=== PATIENT | female | born 1950 | race Caucasian/White ===

== ENCOUNTER 2018-09-30 14:30 | Emergency (ER) | payer OTHER ==
--- NOTE | 2018-09-30 15:37 | RAD REPORT ---
EXAM DESCRIPTION: RAD - Forearm Right - 09/30/2018 3:31 pm CLINICAL HISTORY: PAIN Fall, pain COMPARISON: <Comparisons> FINDINGS: Right forearm and right wrist- multiple projections are submitted Mildly impacted distal radius fracture is seen with intra-articular extension. Ulnar styloid avulsion fracture is present. No dislocation evident. Mild soft tissue swelling is seen.
[2018-09-30] MEDS ORDERED: FENTANYL CITR 100 MCG/2 ML ONE (15:40)
--- NOTE | 2018-09-30 16:12 | ER ---
Nurse's Notes [facility] Name: Roselia Chung Age: 67 yrs Sex: Female : 1950 Arrival Date: 09/30/2018 Time: 14:31 Bed 11 Private MD: Luis Decker T Diagnosis: Fall on same level, unspecified;Nondisplaced fracture of distal right radius;Nondisplaced fracture of right ulnar styloid Presentation: 09/30 14:48 Presenting complaint: Patient states: "I fell and broke my fall with my right arm and I aa5 think I broke it". Pt c/o right wrist pain. Care prior to arrival: None. Mechanism of Injury: Fall. Trauma event details: Injury occurred in the [facility], Injury occurred: at home. Injury occurred: September 30, 2018. 14:48 Method Of Arrival: Ambulatory aa5 14:48 Acuity: JAKOB 3 aa5 14:48 Transition of care: patient was not received from another setting of care. Onset of aa5 symptoms was September 30, 2018. 14:48 Risk Assessment: Do you want to hurt yourself or someone else? Patient reports no aa5 desire to harm self or others. Initial Sepsis Screen: Does the patient meet any 2 criteria? No. Patient's initial sepsis screen is negative. Does the patient have a suspected source of infection? No. Patient's initial sepsis screen is negative. Historical: - Allergies: 14:50 No Known Allergies; aa5 - Home Meds: 14:50 None [Active]; aa5 - PMHx: 14:50 None; aa5 - PSHx: 14:50 Cholecystectomy; lap band; Hysterectomy; aa5 - Immunization history:: Adult Immunizations up to date. - Social history:: Smoking status: Patient/guardian denies using tobacco. - Ebola Screening: : No symptoms or risks identified at this time. Screenin:33 Abuse screen: Denies threats or abuse. Denies injuries from another. Nutritional rv screening: No deficits noted. Tuberculosis screening: No symptoms or risk factors identified. 16:36 Fall Risk Fall in past 12 months (25 points). No secondary diagnosis (0 pts). No IV (0 rv pts). Ambulatory Aid- None/Bed Rest/Nurse Assist (0 pts). Gait- Normal/Bed Rest/Wheelchair (0 pts) Mental Status- Oriented to own ability (0 pts). Assessment: 15:00 General: Appears in no apparent distress. comfortable, Behavior is calm, cooperative. rv Pain: Complains of pain in right arm and right wrist. 15:00 Neuro: Level of Consciousness is awake, alert, obeys commands, Oriented to person, rv place, time, situation. Cardiovascular: Patient's skin is warm and dry. Respiratory: Airway is patent. GI: No signs and/or symptoms were reported involving the gastrointestinal system. : No signs and/or symptoms were reported regarding the genitourinary system. EENT: No signs and/or symptoms were reported regarding the EENT system. Derm: Skin is intact. Musculoskeletal: Swelling present in right wrist Reports pain in right arm and right wrist. Vital Signs: 14:50 BP 156 / 82; Pulse 86; Resp 20 S; Temp 97.8(TE); Pulse Ox 97% on R/A; Weight 95.25 kg aa5 (R); Height 5 ft. 5 in. (165.10 cm); Pain 10/10; 16:37 BP 145 / 81; Pulse 82; Resp 18; Temp 98; Pulse Ox 99% ; rv 14:50 Body Mass Index 34.95 (95.25 kg, 165.10 cm) aa5 ED Course: 14:31 Patient arrived in ED. dp 14:32 Luis Decker MD is Private Physician. dp 14:49 Triage completed. aa5 14:49 Arm band placed on. aa5 14:51 [facility] Marcel[facility]C [facility]. snw 14:51 Sanjay Pugh MD is Attending Physician. snw 15:33 Wrist Right 3 View XRAY In Process Unspecified. EDMS 15:33 Forearm Right XRAY In Process Unspecified. EDMS 15:37 Samir Agudelo, YG is Primary Nurse. rv 16:08 Eladio Benedict MD is Referral Physician. snw 16:36 No provider procedures requiring assistance completed. Patient did not have IV access rv during this emergency room visit. Orthoglass splint: Sugar tong splint applied on right arm. 16:37 Patient has correct armband on for positive identification. Bed in low position. Call rv light in reach. Adult w/ patient. Cardiac monitoring not applicable on this patient. Administered Medications: 15:30 Drug: fentaNYL (PF) 75 mcg Route: IM; Site: left deltoid; iw 16:27 Follow up: Response: No adverse reaction rv Outcome: 16:11 Discharge ordered by . snw 16:36 Discharged to home ambulatory, with family. rv 16:36 Condition: good 16:36 Discharge instructions given to patient, family, Instructed on discharge instructions, follow up and referral plans. medication usage, Demonstrated understanding of instructions, follow-up care, medications, splint care, Prescriptions given X 3. 16:37 Patient left the ED. rv Signatures: Dispatcher [employer] EDMS Bina Marcelino, SPINNER IRON-C SPINNER IRON-Csnw Marine Johnston RN RN iw Beatriz Isbell RN RN aa5 Samir Agudelo RN RN rv Nguyễn Sanchez
--- NOTE | 2018-09-30 16:12 | EDPHYS ---
Physician Documentation [facility] Name: Roselia Chung Age: 67 yrs Sex: Female : 1950 Arrival Date: 09/30/2018 Time: 14:31 Bed 11 Private MD: Luis Decker T ED Physician Sanjay Pugh HPI: 09/30 15:37 This 67 yrs old Female presents to ER via Ambulatory with complaints of Fall snw Injury, Wrist Injury. 15:37 Details of fall: The patient fell from an upright position, while standing. Onset: The snw symptoms/episode began/occurred suddenly, and became persistent. Associated injuries: The patient sustained right wrist, contusion, decreased range of motion, painful injury, swelling. Severity of symptoms: At their worst the symptoms were moderate, severe. The patient has not experienced similar symptoms in the past. The patient has not recently seen a physician. no other injury, no LOC. Historical: - Allergies: 14:50 No Known Allergies; aa5 - Home Meds: 14:50 None [Active]; aa5 - PMHx: 14:50 None; aa5 - PSHx: 14:50 Cholecystectomy; lap band; Hysterectomy; aa5 - Immunization history:: Adult Immunizations up to date. - Social history:: Smoking status: Patient/guardian denies using tobacco. - Ebola Screening: : No symptoms or risks identified at this time. ROS: 15:35 Constitutional: Negative for fever, chills, and weight loss, Eyes: Negative for injury, snw pain, redness, and discharge, ENT: Negative for injury, pain, and discharge, Neck: Negative for injury, pain, and swelling, Cardiovascular: Negative for chest pain, palpitations, and edema, Respiratory: Negative for shortness of breath, cough, wheezing, and pleuritic chest pain, Abdomen/GI: Negative for abdominal pain, nausea, vomiting, diarrhea, and constipation, Back: Negative for injury and pain, : Negative for injury, bleeding, discharge, and swelling, Skin: Negative for injury, rash, and discoloration, Neuro: Negative for headache, weakness, numbness, tingling, and seizure, Psych: Negative for depression, anxiety, suicide ideation, homicidal ideation, and hallucinations. 15:35 MS/extremity: Positive for injury or acute deformity, decreased range of motion, pain, swelling, tenderness, of the right wrist. Exam: 15:35 Constitutional: This is a well developed, well nourished patient who is awake, alert, snw and in no acute distress. Head/Face: Normocephalic, atraumatic. Eyes: Pupils equal round and reactive to light, extra-ocular motions intact. Lids and lashes normal. Conjunctiva and sclera are non-icteric and not injected. Cornea within normal limits. Periorbital areas with no swelling, redness, or edema. ENT: Nares patent. No nasal discharge, no septal abnormalities noted. Tympanic membranes are normal and external auditory canals are clear. Oropharynx with no redness, swelling, or masses, exudates, or evidence of obstruction, uvula midline. Mucous membranes moist. Neck: Trachea midline, no thyromegaly or masses palpated, and no cervical lymphadenopathy. Supple, full range of motion without nuchal rigidity, or vertebral point tenderness. No Meningismus. Chest/axilla: Normal chest wall appearance and motion. Nontender with no deformity. No lesions are appreciated. Cardiovascular: Regular rate and rhythm with a normal S1 and S2. No gallops, murmurs, or rubs. Normal PMI, no JVD. No pulse deficits. Respiratory: Lungs have equal breath sounds bilaterally, clear to auscultation and percussion. No rales, rhonchi or wheezes noted. No increased work of breathing, no retractions or nasal flaring. Abdomen/GI: Soft, non-tender, with normal bowel sounds. No distension or tympany. No guarding or rebound. No evidence of tenderness throughout. Back: No spinal tenderness. No costovertebral tenderness. Full range of motion. Skin: Warm, dry with normal turgor. Normal color with no rashes, no lesions, and no evidence of cellulitis. Neuro: Awake and alert, GCS 15, oriented to person, place, time, and situation. Cranial nerves II-XII grossly intact. Motor strength 5/5 in all extremities. Sensory grossly intact. Cerebellar exam normal. Normal gait. Psych: Awake, alert, with orientation to person, place and time. Behavior, mood, and affect are within normal limits. 15:35 Musculoskeletal/extremity: Extremities: grossly normal except: noted in the right wrist: decreased ROM, swelling, tenderness, ROM: limited active range of motion due to pain, limited passive range of motion due to pain, in the right wrist, Circulation is intact in all extremities. Sensation intact. Vital Signs: 14:50 BP 156 / 82; Pulse 86; Resp 20 S; Temp 97.8(TE); Pulse Ox 97% on R/A; Weight 95.25 kg aa5 (R); Height 5 ft. 5 in. (165.10 cm); Pain 10/10; 16:37 BP 145 / 81; Pulse 82; Resp 18; Temp 98; Pulse Ox 99% ; rv 14:50 Body Mass Index 34.95 (95.25 kg, 165.10 cm) aa5 Procedures: 16:15 Splinting: Splint applied to right arm using Orthoglass splint, applied by nurse. snw Examined by me, post splint application: neurovascular intact, 2+ distal pulses palpable, brisk capillary refill noted, Patient tolerated well. MDM: 14:52 Patient medically screened. snw 16:04 Data reviewed: vital signs, nurses notes. Data interpreted: Pulse oximetry: on room air snw is 97 %. Interpretation: normal. Counseling: I had a detailed discussion with the patient and/or guardian regarding: the historical points, exam findings, and any diagnostic results supporting the discharge/admit diagnosis, the presence of at least one elevated blood pressure reading (>120/80) during this emergency department visit, radiology results, the need for outpatient follow up, to return to the emergency department if symptoms worsen or persist or if there are any questions or concerns that arise at home. Special discussion: I have referred the patient to see his PCP for further evaluation of high blood pressure. Based on the history and exam findings, there is no indication for further emergent testing or inpatient evaluation. I discussed with the patient/guardian the need to see the orthopedic surgeon for further evaluation of the symptoms. 16:13 Response to treatment: the patient's symptoms have markedly improved after treatment. snw 09/30 14:51 Order name: Wrist Right 3 View XRAY aa5 09/30 14:52 Order name: Forearm Right XRAY; Complete Time: 15:51 snw 09/30 15:37 Order name: Ice pack; Complete Time: 15:57 snw 09/30 15:37 Order name: Sugar Tong Forearm Splint; Complete Time: 15:57 snw 09/30 15:37 Order name: Sling; Complete Time: 15:57 snw Administered Medications: 15:30 Drug: fentaNYL (PF) 75 mcg Route: IM; Site: left deltoid; 16:27 Follow up: Response: No adverse reaction rv Disposition: 17:16 Co-signature as Attending Physician, Sanjay Pugh MD. rn Disposition: 09/30/18 16:11 Discharged to Home. Impression: Fall on same level, unspecified, Nondisplaced fracture of distal right radius, Nondisplaced fracture of right ulnar styloid. - Condition is Stable. - Discharge Instructions: Cast or Splint Care, Adult, Forearm Fracture, Fall Prevention in the Home, RICE for Routine Care of Injuries, How to Use a Sling. - Prescriptions for Tylenol- Codeine #3 300-30 mg Oral Tablet - take 2 tablets by ORAL route every 6 hours As needed; 20 tablet. Motrin IB 200 mg Oral Tablet - take 2 tablet by ORAL route every 8 hours As needed as needed with food; 40 tablet. promethazine 25 mg Oral Tablet - take 1 tablet by ORAL route every 6 hours As needed; 20 tablet. - Medication Reconciliation Form, Thank You Letter, Antibiotic Education, Prescription Opioid Use form. - Follow up: Eladio Benedict MD; When: 2 - 3 days; Reason: Recheck today's complaints, Continuance of care, Re-evaluation by your physician. Signatures: Dispatcher [employer] EDMS Bina Marcelino, RESEARCH ENGINEER-C RESEARCH ENGINEER-Csnw Marine Johnston RN RN Sanjay Pugh MD MD rn Calderon, Audri, RN RN aa5 Samir Agudelo RN RN rv Corrections: (The following items were deleted from the chart) 16:37 16:11 09/30/2018 16:11 Discharged to Home. Impression: Fall on same level, unspecified; rv Nondisplaced fracture of distal right radius; Nondisplaced fracture of right ulnar styloid. Condition is Stable. Forms are Medication Reconciliation Form, Thank You Letter, Antibiotic Education, Prescription Opioid Use. Follow up: Eladio Benedict; When: 2 - 3 days; Reason: Recheck today's complaints, Continuance of care, Re-evaluation by your physician. snw
--- NOTE | 2018-09-30 16:25 | RAD REPORT ---
EXAM DESCRIPTION: RAD - Wrist Right 3 View - 09/30/2018 3:31 pm CLINICAL HISTORY: PAIN Fall, pain COMPARISON: None FINDINGS: Right forearm and right wrist- multiple projections are submitted Mildly impacted distal radius fracture is seen with intra-articular extension. Ulnar styloid avulsion fracture is present. No dislocation evident. Mild soft tissue swelling is seen.
== END 2018-09-30 16:37 | disposition home or self-care (01) ==
LOC: ER 14:30
PROC: 2W3CX1Z Immobilization of Right Lower Arm using Splint (ICD-10-PCS; principal; 2018-09-30)
DX: S52.571A Other intraarticular fracture of lower end of right radius, initial encounter for closed fracture (principal); S52.614A Nondisplaced fracture of right ulna styloid process, initial encounter for closed fracture; W18.30XA Fall on same level, unspecified, initial encounter
CPT/HCPCS: 73090; 73110; 96372; 99284; 29125; J3010